=== PATIENT | female | born 1970 | race Two or more races ===

== ENCOUNTER 2018-09-22 14:14 | Emergency (ER) | payer MEDICAID, OTHER ==
[~2018-09-22] VITALS: Ht 154.9 cm; Wt 62.5 kg
[2018-09-22] MEDS ORDERED: IBUPROFEN 600 MG TABLET PO ONE (15:00)
[2018-09-22 16:48] VITALS: BP 124/74
== END 2018-09-22 16:59 | disposition home or self-care (01) ==
LOC: EMS 14:15
DX: S83.92XA Sprain of unspecified site of left knee, initial encounter (principal); X50.1XXA Overexertion from prolonged static or awkward postures, initial encounter; Y93.89 Activity, other specified; Y92.89 Other specified places as the place of occurrence of the external cause; Y99.8 Other external cause status